=== PATIENT | male | born 1975 | race Hispanic/Latino ===

== ENCOUNTER 2024-01-07 20:09 | Inpatient (IN) | payer BC, OTHER ==
[~2024-01-07] VITALS: Ht 182.9 cm; Wt 113.8 kg
[2024-01-07] MEDS ORDERED: METF500S9 PO (20:30)
[2024-01-07] MEDS ORDERED: SEMA1PEN3 SQ (20:30)
[2024-01-07] MEDS ORDERED: ATOR40TA71 PO (20:30)
[2024-01-07] MEDS ORDERED: VANCOMYCIN PROTOCOL PER PHARMACY IV SCH (20:30)
[2024-01-07] MEDS ORDERED: LOSA25TA41 PO (20:30)
[2024-01-07] MEDS ORDERED: VANCOMYCIN KIT 1 GM/250 ML IV.KIT IV ONE (20:30)
[2024-01-07] MEDS ORDERED: INSLAN SQ (20:30)
[2024-01-07] MEDS: ceFEPime HCL 1 GM VIAL IVPB SCH (20:49)
[2024-01-07] MEDS: VANCOMYCIN 2GM/500 ML BAG 500 ML IV ONE (21:39)
[2024-01-07 22:07] LABS: BASOPHILS # (AUTO) 0.02 K/uL (0.00-0.20); BASOPHILS % (AUTO) 0.2 % (0.0-5.0); EOSINOPHILS # (AUTO) 0.15 K/uL (0.00-0.70); EOSINOPHILS % (AUTO) 1.6 % (0.0-8.0); HEMATOCRIT 34.1 % (42-54); IMMATURE GRANULOCYTE ABSOLUTE 0.04 K/uL (0-1); LYMPHOCYTES % (AUTO) 21.2 % (21.0-51.0); MEAN CORPUSCULAR HEMOGLOBIN 27.3 pg (27.0-33.0); MEAN CORPUSCULAR HGB CONC 33.1 g/dL (32.0-36.0); MEAN CORPUSCULAR VOLUME 82.4 fL (79-99); MONOCYTES # (AUTO) 0.6 K/uL (0.1-1.0); MONOCYTES % (AUTO) 6.2 % (3.0-13.0); NEUTROPHILS # (AUTO) 6.5 K/uL (1.8-7.7); NEUTROPHILS % (AUTO) 70.4 % (40.0-77.0); PLATELET COUNT (AUTO) 337 K/uL (130-400); RED BLOOD CELL COUNT(AUTO) 4.14 MIL/uL (4.50-6.20); RED CELL DISTRIBUTION WIDTH 13.2 % (11.0-15.5); WHITE BLOOD COUNT (AUTO) 9.2 K/uL (4.8-10.8)
[2024-01-07 22:15] LABS: CREATININE 1.1 mg/dL (0.5-1.3); POTASSIUM 3.8 mmol/L (3.5-5.1)
[2024-01-07 22:20] LABS: ALBUMIN 2.4 g/dL (3.5-5.0); BILIRUBIN,TOTAL 0.2 mg/dL (0.2-1.0); TOTAL PROTEIN, SERUM 7.7 g/dL (6.0-8.3)
[2024-01-07 22:30] VITALS: BP 169/86; PULSE 91; RESP 19; TEMP 98.5; O2SAT 93
[2024-01-07] MEDS ORDERED: ERGO500093 PO (22:53)
[2024-01-07] MEDS ORDERED: GLUCAGON 1MG KIT 1 MG ML IM PRN (23:00)
[2024-01-07] MEDS ORDERED: DEXTROSE 50%-WATER 50 ML DISP.SYRIN IV PRN (23:00)
[2024-01-07] MEDS ORDERED: POTASSIUM CHLORIDE 20MEQ/100ML 100 ML IV PRN (23:00)
[2024-01-07] MEDS: HYDROcodone/APAP 5/325 1 TAB TABLET PO PRN (23:30)
[2024-01-07] MEDS: KCL 20 MEQ ERTAB PO ONE (23:30)
[2024-01-07] MEDS ORDERED: POTASSIUM CHLORIDE 10% ELIXIR 20 MEQ/15 ML UDCUP PO PRN (23:30)
[2024-01-07] MEDS: 0.9%NACL 1000ML 1,000 ML IV SCH (23:30)
[2024-01-08] VITALS (23 sets, daily range): BP systolic 110–167; BP diastolic 59–96; PULSE 63–78; RESP 13–20; TEMP 97.8–99; O2SAT 93–96
[2024-01-08 04:10] LABS: BASOPHILS # (AUTO) 0.02 K/uL (0.00-0.20); BASOPHILS % (AUTO) 0.2 % (0.0-5.0); EOSINOPHILS # (AUTO) 0.24 K/uL (0.00-0.70); EOSINOPHILS % (AUTO) 2.9 % (0.0-8.0); HEMATOCRIT 32.9 % (42-54); IMMATURE GRANULOCYTE ABSOLUTE 0.03 K/uL (0-1); LYMPHOCYTES % (AUTO) 24.1 % (21.0-51.0); MEAN CORPUSCULAR HEMOGLOBIN 27.2 pg (27.0-33.0); MEAN CORPUSCULAR HGB CONC 32.5 g/dL (32.0-36.0); MEAN CORPUSCULAR VOLUME 83.5 fL (79-99); MONOCYTES # (AUTO) 0.7 K/uL (0.1-1.0); MONOCYTES % (AUTO) 8.4 % (3.0-13.0); NEUTROPHILS # (AUTO) 5.3 K/uL (1.8-7.7); PLATELET COUNT (AUTO) 312 K/uL (130-400); RED BLOOD CELL COUNT(AUTO) 3.94 MIL/uL (4.50-6.20); RED CELL DISTRIBUTION WIDTH 13.2 % (11.0-15.5); WHITE BLOOD COUNT (AUTO) 8.3 K/uL (4.8-10.8)
[2024-01-08 04:36] LABS: % IRON SATURATION 10.8 % (30-44)
[2024-01-08 04:40] LABS: ALBUMIN 2.1 g/dL (3.5-5.0); BILIRUBIN,TOTAL 0.1 mg/dL (0.2-1.0); MAGNESIUM 1.6 mg/dL (1.80-2.40); POTASSIUM 3.6 mmol/L (3.5-5.1)
[2024-01-08] MEDS: KCL 20 MEQ ERTAB PO PRN (05:58)
[2024-01-08] MEDS: MAGNESIUM 2GM PREMIX 50ML 50 ML IV PRN (05:59)
[2024-01-08] MEDS: INSULIN humuLIN R 100 UNIT/ML 3ML SQ SCH (06:05)
[2024-01-08] MEDS: VANCOMYCIN 1.25 GM/250 ML BAG 250 ML IV SCH (11:10)
[2024-01-08] MEDS ORDERED: LIDOCAINE PF 100MG/5ML (2%) SYRINGE 5ML ONE (15:42)
[2024-01-08] MEDS ORDERED: dexaMETHasone SOD PHOSPHATE 10MG/ML 1ML VIAL ONE (15:42)
[2024-01-08] MEDS ORDERED: MIDAZOLAM HCL 1 MG/ML 2ML VIAL ONE (15:43)
[2024-01-08] MEDS ORDERED: proPOFol 10 MG/ML 20ML VIAL IV ONE ×2 (15:43→16:19)
[2024-01-08] MEDS ORDERED: FENTanyl CITRate PF 50 MCG/1 ML 2ML VIAL ONE (15:43)
[2024-01-08] MEDS ORDERED: ONDANSETRON 4MG INJ ONE (15:43)
[2024-01-08] MEDS ORDERED: LIDOCAINE HCL-MPF 2% 10ML AMP IJ ONE (15:59)
[2024-01-08] MEDS ORDERED: BUPIvacaine/PF 0.5% 10ML VIAL ONE (15:59)
[2024-01-08] MEDS: LIDOCAINE HCL-MPF 2% 10ML AMP IJ ONE (16:20)
[2024-01-08] MEDS ORDERED: PHENYLEPHRINE HCL 10 MG/ML 1ML VIAL IV ONE (16:25)
[2024-01-08] MEDS ORDERED: morPHINE 2 MG SYG IVP PRN ×2 (18:30)
[2024-01-08] MEDS: INSULIN GLARgine 100 UNITS/ML 10 ML VIAL SQ SCH (20:17)
[2024-01-08] MEDS: LoSARTan 25 MG TABLET PO SCH (20:22)
[2024-01-08] MEDS ORDERED: PHARMACY COMMUNICATION MISC SCH (20:30)
[2024-01-09] VITALS (9 sets, daily range): BP systolic 119–141; BP diastolic 66–78; PULSE 66–78; RESP 16–20; TEMP 97.6–98.3; O2SAT 96–97
[2024-01-09 05:19] LABS: BASOPHILS # (AUTO) 0.01 K/uL (0.00-0.20); BASOPHILS % (AUTO) 0.1 % (0.0-5.0); EOSINOPHILS # (AUTO) 0.01 K/uL (0.00-0.70); EOSINOPHILS % (AUTO) 0.1 % (0.0-8.0); HEMATOCRIT 34.6 % (42-54); IMMATURE GRANULOCYTE ABSOLUTE 0.03 K/uL (0-1); LYMPHOCYTES # (AUTO) 1.4 K/uL (1.0-4.8); LYMPHOCYTES % (AUTO) 14.9 % (21.0-51.0); MEAN CORPUSCULAR HEMOGLOBIN 26.5 pg (27.0-33.0); MEAN CORPUSCULAR HGB CONC 32.4 g/dL (32.0-36.0); MONOCYTES # (AUTO) 0.5 K/uL (0.1-1.0); MONOCYTES % (AUTO) 5.1 % (3.0-13.0); NEUTROPHILS # (AUTO) 7.7 K/uL (1.8-7.7); NEUTROPHILS % (AUTO) 79.5 % (40.0-77.0); PLATELET COUNT (AUTO) 344 K/uL (130-400); RED BLOOD CELL COUNT(AUTO) 4.22 MIL/uL (4.50-6.20); RED CELL DISTRIBUTION WIDTH 13.1 % (11.0-15.5); WHITE BLOOD COUNT (AUTO) 9.6 K/uL (4.8-10.8)
[2024-01-09 05:38] LABS: ALBUMIN 2.3 g/dL (3.5-5.0); BILIRUBIN,TOTAL 0.3 mg/dL (0.2-1.0); MAGNESIUM 1.8 mg/dL (1.80-2.40); POTASSIUM 4.2 mmol/L (3.5-5.1); TOTAL PROTEIN, SERUM 7.5 g/dL (6.0-8.3)
[2024-01-10 03:45] VITALS: BP 136/61; PULSE 77; RESP 17; TEMP 98.2
[2024-01-10 06:01] LABS: BASOPHILS # (AUTO) 0.01 K/uL (0.00-0.20); BASOPHILS % (AUTO) 0.1 % (0.0-5.0); EOSINOPHILS # (AUTO) 0.18 K/uL (0.00-0.70); EOSINOPHILS % (AUTO) 2.5 % (0.0-8.0); HEMATOCRIT 32.3 % (42-54); IMMATURE GRANULOCYTE ABSOLUTE 0.04 K/uL (0-1); LYMPHOCYTES % (AUTO) 28.1 % (21.0-51.0); MEAN CORPUSCULAR HEMOGLOBIN 26.6 pg (27.0-33.0); MEAN CORPUSCULAR HGB CONC 32.5 g/dL (32.0-36.0); MONOCYTES # (AUTO) 0.6 K/uL (0.1-1.0); MONOCYTES % (AUTO) 8.3 % (3.0-13.0); NEUTROPHILS # (AUTO) 4.4 K/uL (1.8-7.7); NEUTROPHILS % (AUTO) 60.4 % (40.0-77.0); PLATELET COUNT (AUTO) 344 K/uL (130-400); RED BLOOD CELL COUNT(AUTO) 3.94 MIL/uL (4.50-6.20); RED CELL DISTRIBUTION WIDTH 13.2 % (11.0-15.5); WHITE BLOOD COUNT (AUTO) 7.3 K/uL (4.8-10.8)
[2024-01-10 06:20] LABS: ALBUMIN 2.1 g/dL (3.5-5.0); BILIRUBIN,TOTAL 0.2 mg/dL (0.2-1.0); MAGNESIUM 1.7 mg/dL (1.80-2.40); POTASSIUM 3.5 mmol/L (3.5-5.1); TOTAL PROTEIN, SERUM 6.9 g/dL (6.0-8.3)
[2024-01-10 08:00] VITALS: BP 156/78; PULSE 75; RESP 18; TEMP 97.6; O2SAT 97
[2024-01-10 11:29] VITALS: BP 130/65; PULSE 71; RESP 18; TEMP 99.2
[2024-01-10 16:00] VITALS: BP 152/79; PULSE 75; RESP 18; TEMP 98.3
[2024-01-10] MEDS: ERYTHROMYCIN BASE 0.5% OPHTH OINT 1 GM TUBE OS ONE (16:33)
[2024-01-10 20:00] VITALS: O2SAT 94
[2024-01-10 21:18] VITALS: BP 155/74; PULSE 76; RESP 18; TEMP 98.5
[2024-01-11] VITALS: BP 184/84; PULSE 86; RESP 20; TEMP 98.4
[2024-01-11] MEDS: hydrALAZine 20MG/ML VIAL IV ONE (01:18)
[2024-01-11 04:29] VITALS: BP 138/63; PULSE 76; RESP 19; TEMP 98.3
[2024-01-11 04:31] VITALS: BP 133/66; PULSE 72; RESP 18; TEMP 98.3
[2024-01-11 05:08] LABS: BASOPHILS # (AUTO) 0.01 K/uL (0.00-0.20); BASOPHILS % (AUTO) 0.2 % (0.0-5.0); EOSINOPHILS # (AUTO) 0.18 K/uL (0.00-0.70); EOSINOPHILS % (AUTO) 2.8 % (0.0-8.0); HEMATOCRIT 35.8 % (42-54); IMMATURE GRANULOCYTE ABSOLUTE 0.03 K/uL (0-1); LYMPHOCYTES # (AUTO) 1.8 K/uL (1.0-4.8); LYMPHOCYTES % (AUTO) 28.4 % (21.0-51.0); MEAN CORPUSCULAR HEMOGLOBIN 27.1 pg (27.0-33.0); MEAN CORPUSCULAR HGB CONC 32.1 g/dL (32.0-36.0); MEAN CORPUSCULAR VOLUME 84.4 fL (79-99); MONOCYTES # (AUTO) 0.6 K/uL (0.1-1.0); MONOCYTES % (AUTO) 9.5 % (3.0-13.0); NEUTROPHILS # (AUTO) 3.8 K/uL (1.8-7.7); NEUTROPHILS % (AUTO) 58.6 % (40.0-77.0); PLATELET COUNT (AUTO) 326 K/uL (130-400); RED BLOOD CELL COUNT(AUTO) 4.24 MIL/uL (4.50-6.20); RED CELL DISTRIBUTION WIDTH 13.2 % (11.0-15.5); WHITE BLOOD COUNT (AUTO) 6.4 K/uL (4.8-10.8)
[2024-01-11 05:38] LABS: ALBUMIN 2.3 g/dL (3.5-5.0); BILIRUBIN,TOTAL 0.1 mg/dL (0.2-1.0); CREATININE 0.9 mg/dL (0.5-1.3); MAGNESIUM 1.8 mg/dL (1.80-2.40); POTASSIUM 3.5 mmol/L (3.5-5.1); TOTAL PROTEIN, SERUM 7.2 g/dL (6.0-8.3)
[2024-01-11 08:00] VITALS: BP 158/89; PULSE 72; RESP 18; TEMP 98.2
[2024-01-11 08:15] VITALS: O2SAT 96
[2024-01-11 12:00] VITALS: BP 148/83; PULSE 68; RESP 18; TEMP 98
== END 2024-01-11 15:50 | disposition home or self-care (01) | DRG 854 ==
LOC: EDH 20:09 → EDHIP 20:10 → 4BH 22:34
PROVIDERS: ADMIT Hospitalist; ATTEND Hospitalist
PROC: 0Y6Q0Z1 Detachment at Left 1st Toe, High, Open Approach (ICD-10-PCS; principal; 2024-01-08 16:20)
DX: A41.9 Sepsis, unspecified organism (principal); E11.52 Type 2 diabetes mellitus with diabetic peripheral angiopathy with gangrene; E46 Unspecified protein-calorie malnutrition; M86.8X7 Other osteomyelitis, ankle and foot; L97.518 Non-pressure chronic ulcer of other part of right foot with other specified severity; L97.528 Non-pressure chronic ulcer of other part of left foot with other specified severity; Z89.422 Acquired absence of other left toe(s); Z89.421 Acquired absence of other right toe(s); E11.69 Type 2 diabetes mellitus with other specified complication; B96.4 Proteus (mirabilis) (morganii) as the cause of diseases classified elsewhere; D64.9 Anemia, unspecified; E11.622 Type 2 diabetes mellitus with other skin ulcer; E66.9 Obesity, unspecified; I10 Essential (primary) hypertension; Z83.3 Family history of diabetes mellitus; B95.61 Methicillin susceptible Staphylococcus aureus infection as the cause of diseases classified elsewhere; B95.4 Other streptococcus as the cause of diseases classified elsewhere; E11.621 Type 2 diabetes mellitus with foot ulcer; Z68.34 Body mass index [BMI] 34.0-34.9, adult
CPT/HCPCS: 36415; 73630; 73718; 80053; 80061; 80202; 82948; 83036; 83540; 83550; 83735; 84145; 85025; 86140; 87070; 87076; 87086; 87186; 87205; 93925; G0378; J0360; J0692; J1100; J1815; J2001; J2250; J2371; J2405; J2704; J3010; J3475; J3490; J7030; 3370; A4222; A4223; A4649; A6446; C1729; J0665; J3370

== ENCOUNTER 2024-02-04 19:02 | Inpatient (IN) | payer OTHER ==
[~2024-02-04] VITALS: Ht 182.9 cm; Wt 111.7 kg
[~2024-02-04 19:02] MED LIST: ERGO500093 PO; INSLAN SQ; LOSA25TA41 PO; METF500S9 PO; SEMA1PEN3 SQ
[2024-02-04 19:27] LABS: BASOPHILS # (AUTO) 0.03 K/uL (0.00-0.20); BASOPHILS % (AUTO) 0.3 % (0.0-5.0); EOSINOPHILS # (AUTO) 0.21 K/uL (0.00-0.70); EOSINOPHILS % (AUTO) 2.1 % (0.0-8.0); HEMATOCRIT 34.4 % (42-54); IMMATURE GRANULOCYTE ABSOLUTE 0.04 K/uL (0-1); LYMPHOCYTES # (AUTO) 2.8 K/uL (1.0-4.8); LYMPHOCYTES % (AUTO) 28.1 % (21.0-51.0); MEAN CORPUSCULAR HEMOGLOBIN 26.6 pg (27.0-33.0); MEAN CORPUSCULAR HGB CONC 33.1 g/dL (32.0-36.0); MEAN CORPUSCULAR VOLUME 80.2 fL (79-99); MONOCYTES # (AUTO) 0.7 K/uL (0.1-1.0); MONOCYTES % (AUTO) 7.3 % (3.0-13.0); NEUTROPHILS # (AUTO) 6.2 K/uL (1.8-7.7); NEUTROPHILS % (AUTO) 61.8 % (40.0-77.0); PLATELET COUNT (AUTO) 379 K/uL (130-400); RED BLOOD CELL COUNT(AUTO) 4.29 MIL/uL (4.50-6.20); RED CELL DISTRIBUTION WIDTH 13.6 % (11.0-15.5); WHITE BLOOD COUNT (AUTO) 10.1 K/uL (4.8-10.8)
[2024-02-04 19:34] LABS: POTASSIUM 3.9 mmol/L (3.5-5.1)
[2024-02-04 20:08] LABS: INR 0.96 (0.85-1.15); PROTHROMBIN TIME 10.4 SEC (9.6-11.6)
[2024-02-04 20:10] LABS: PARTIAL THROMBOPLASTIN TIME 31.7 SEC (26.3-35.5)
[2024-02-04] MEDS: ENOXAPARIN SODIUM 120 MG/0.8ML SQ ONE (21:12)
[2024-02-04] MEDS ORDERED: ondanSETRON 4MG INJ IVP PRN (21:30)
[2024-02-04] MEDS ORDERED: PoTASSium chloRIDE 20MEQ/100ML 100 ML IV PRN (21:30)
[2024-02-04] MEDS ORDERED: TEMAZepam 15 MG CAPSULE PO PRN (21:30)
[2024-02-04] MEDS ORDERED: PoTASSium chl 10% ELIXIR 20MEQ 20 MEQ/15 ML UDCUP PO PRN (21:30)
[2024-02-04] MEDS ORDERED: doCUSate SODIUM 100 MG CAP PO PRN (21:30)
[2024-02-04] MEDS ORDERED: DEXTROSE 50%-WATER 50 ML DISP.SYRIN IV PRN (21:30)
[2024-02-04] MEDS ORDERED: hydrALAZine 20MG/ML VIAL IV PRN (21:30)
[2024-02-04] MEDS ORDERED: LACTULOSE 20 GM/30 ML UDCUP PO PRN (21:30)
[2024-02-04] MEDS ORDERED: GLUCAGON 1MG KIT 1 MG ML IM PRN (21:30)
[2024-02-04] MEDS ORDERED: acetaMINOPHEN 650 MG SUPPOSITORY RC PRN (21:30)
[2024-02-04] MEDS: HYDROcodone/APAP 5/325 1 TAB TABLET PO PRN (21:31)
[2024-02-04 21:54] LABS: ADD UA MICROSCOPIC YES; APPEARANCE,URINE CLEAR (CLEAR); BILIRUBIN,URINE NEGATIVE (NEGATIVE); COLOR,URINE LIGHT-YELLOW (YELLOW); GLUCOSE, URINE (UA) 200 mg/dL (NEGATIVE); KETONES,URINE NEGATIVE (NEGATIVE); LEUKOCYTE ESTERASE ,URINE NEGATIVE Leu/uL (NEGATIVE); NITRATE,URINE NEGATIVE (NEGATIVE); OCCULT BLOOD,URINE SMALL (NEGATIVE); PROTEIN,URINE 300 mg/dL (NEGATIVE); UROBILINOGEN,URINE 0.2 mg/dL (0.2-1.0)
[2024-02-04 21:55] LABS: MUCUS,URINE RARE LPF (None Seen); RBC,URINE 0-1 /HPF (0-1); SQUAMOUS EPITHELIAL CELL,UR RARE /HPF (0-2); WBC,URINE 0-1 /HPF (0-1)
[2024-02-04 22:55] VITALS: BP 149/80; PULSE 99; RESP 18; TEMP 98.2
[2024-02-04] MEDS ORDERED: LOSA50TA64 PO (23:17)
[2024-02-04] MEDS ORDERED: SEMA2PEN SQ (23:20)
[2024-02-04] MEDS ORDERED: GLIM1TAB56 PO (23:20)
[2024-02-04] MEDS ORDERED: CEFU500T67 PO (23:23)
[2024-02-04 23:44] VITALS: O2SAT 100
[2024-02-05] VITALS (7 sets, daily range): BP systolic 133–176; BP diastolic 70–87; PULSE 80–99; RESP 18–20; TEMP 97.4–98.8; O2SAT 97
[2024-02-05 04:52] LABS: BASOPHILS # (AUTO) 0.03 K/uL (0.00-0.20); BASOPHILS % (AUTO) 0.4 % (0.0-5.0); EOSINOPHILS # (AUTO) 0.21 K/uL (0.00-0.70); EOSINOPHILS % (AUTO) 2.8 % (0.0-8.0); HEMATOCRIT 32.2 % (42-54); IMMATURE GRANULOCYTE ABSOLUTE 0.02 K/uL (0-1); LYMPHOCYTES # (AUTO) 2.5 K/uL (1.0-4.8); LYMPHOCYTES % (AUTO) 32.8 % (21.0-51.0); MEAN CORPUSCULAR HEMOGLOBIN 26.6 pg (27.0-33.0); MEAN CORPUSCULAR HGB CONC 32.6 g/dL (32.0-36.0); MEAN CORPUSCULAR VOLUME 81.5 fL (79-99); MONOCYTES # (AUTO) 0.6 K/uL (0.1-1.0); MONOCYTES % (AUTO) 8.4 % (3.0-13.0); NEUTROPHILS # (AUTO) 4.2 K/uL (1.8-7.7); NEUTROPHILS % (AUTO) 55.3 % (40.0-77.0); PLATELET COUNT (AUTO) 322 K/uL (130-400); RED BLOOD CELL COUNT(AUTO) 3.95 MIL/uL (4.50-6.20); RED CELL DISTRIBUTION WIDTH 13.5 % (11.0-15.5); WHITE BLOOD COUNT (AUTO) 7.6 K/uL (4.8-10.8)
[2024-02-05 05:05] LABS: CREATININE 1.1 mg/dL (0.5-1.3); MAGNESIUM 1.5 mg/dL (1.80-2.40); PHOSPHORUS 4.3 mg/dL (2.5-4.9); POTASSIUM 3.5 mmol/L (3.5-5.1)
[2024-02-05] MEDS: MAGNESIUM 2GM PREMIX 50ML 50 ML IV PRN (06:15)
[2024-02-05] MEDS: PoTASSium chloRIDE 20MEQ ER 20 MEQ ERTAB PO PRN (06:16)
[2024-02-05] MEDS: INSULIN humuLIN R 100 UNIT/ML 3ML SQ SCH (06:19)
[2024-02-05] MEDS ORDERED: INSULIN humuLIN R 100 UNIT/ML 3ML SQ SCH (07:30)
[2024-02-05] MEDS: FAMOTIDINE 20MG TAB PO SCH (08:44)
[2024-02-05] MEDS: LoSARTan 50 MG TABLET PO SCH (08:44)
[2024-02-05] MEDS: ENOXAPARIN SODIUM 60 MG/0.6 ML SQ SCH (08:47)
[2024-02-05] MEDS: morPHINE 2 MG SYG IM ONE (22:02)
[2024-02-06] VITALS (22 sets, daily range): BP systolic 129–173; BP diastolic 67–110; PULSE 75–107; RESP 14–19; TEMP 97.8–101; O2SAT 96–97
[2024-02-06] MEDS ORDERED: BUPIvacaine/PF 0.5% 30ML VIAL ONE (09:53)
[2024-02-06] MEDS ORDERED: LIDOCAINE HCL 400MG/20ML VIAL ONE (09:53)
[2024-02-06] MEDS: ceFAZolin SODIUM 2 GM VIAL IVPB ONE ×2 (10:11→10:17)
[2024-02-06] MEDS ORDERED: MIDAZOLAM HCL 1 MG/ML 2ML VIAL ONE (10:18)
[2024-02-06] MEDS ORDERED: FENTanyl CITRate PF 50 MCG/1 ML 2ML VIAL ONE (10:18)
[2024-02-06] MEDS ORDERED: ceFAZolin SODIUM 1 GM VIAL ONE (10:26)
[2024-02-06] MEDS: morPHINE 2 MG SYG IVP PRN (12:46)
[2024-02-06] MEDS ORDERED: ZOSYN 3.375GM +NS 50ML IV SCH (19:00)
[2024-02-06] MEDS: ZOSYN 3.375GM +NS 50ML IV SCH (20:40)
[2024-02-06] MEDS: acetaMINOPHEN 325 MG TAB PO PRN (20:40)
[2024-02-07] VITALS (8 sets, daily range): BP systolic 118–155; BP diastolic 70–83; PULSE 86–104; RESP 14–19; TEMP 98.2–100; O2SAT 97
[2024-02-07] MEDS: HYDROcodone/APAP 5/325 1 TAB TABLET PO PRN (15:58)
[2024-02-07] MEDS ORDERED: HYDROcodone/APAP 5/325 1 TAB TABLET PO PRN (16:00)
[2024-02-07] MEDS: FAMOTIDINE 20MG TAB PO SCH (21:41)
[2024-02-08 03:51] VITALS: BP 144/85; PULSE 85; RESP 17; TEMP 98.8
[2024-02-08 05:16] LABS: BASOPHILS # (AUTO) 0.03 K/uL (0.00-0.20); BASOPHILS % (AUTO) 0.4 % (0.0-5.0); EOSINOPHILS % (AUTO) 2.4 % (0.0-8.0); HEMATOCRIT 31.9 % (42-54); IMMATURE GRANULOCYTE ABSOLUTE 0.03 K/uL (0-1); LYMPHOCYTES # (AUTO) 2.4 K/uL (1.0-4.8); LYMPHOCYTES % (AUTO) 28.8 % (21.0-51.0); MEAN CORPUSCULAR HEMOGLOBIN 25.6 pg (27.0-33.0); MEAN CORPUSCULAR HGB CONC 31.3 g/dL (32.0-36.0); MEAN CORPUSCULAR VOLUME 81.8 fL (79-99); MONOCYTES # (AUTO) 0.8 K/uL (0.1-1.0); MONOCYTES % (AUTO) 9.2 % (3.0-13.0); NEUTROPHILS # (AUTO) 4.8 K/uL (1.8-7.7); NEUTROPHILS % (AUTO) 58.8 % (40.0-77.0); PLATELET COUNT (AUTO) 350 K/uL (130-400); RED CELL DISTRIBUTION WIDTH 13.4 % (11.0-15.5); WHITE BLOOD COUNT (AUTO) 8.2 K/uL (4.8-10.8)
[2024-02-08 05:36] LABS: MAGNESIUM 1.7 mg/dL (1.80-2.40); PHOSPHORUS 3.5 mg/dL (2.5-4.9); POTASSIUM 3.7 mmol/L (3.5-5.1)
[2024-02-08 08:00] VITALS: BP 142/80; PULSE 85; RESP 20; TEMP 98.3; O2SAT 97
[2024-02-08 11:02] VITALS: BP 146/82; PULSE 89; RESP 19; TEMP 98
[2024-02-08 15:59] VITALS: BP 143/86; PULSE 86; RESP 19; TEMP 98.3
[2024-02-08] MEDS ORDERED: APIX5TAB PO (16:51)
== END 2024-02-08 19:30 | disposition home or self-care (01) | DRG 504 ==
LOC: EDH 19:02 → INTOOBSV 20:05 → EDHIP 20:05 → OBSVTOIN 20:05 → 4BH 22:46
PROVIDERS: ADMIT Internal Medicine; ATTEND Internal Medicine
PROC: 0QBR0ZZ Excision of Left Toe Phalanx, Open Approach (ICD-10-PCS; 2024-02-06)
PROC: 0QBP0ZZ Excision of Left Metatarsal, Open Approach (ICD-10-PCS; principal; 2024-02-06 09:30)
DX: T87.44 Infection of amputation stump, left lower extremity (principal); E10.52 Type 1 diabetes mellitus with diabetic peripheral angiopathy with gangrene; T81.30XA Disruption of wound, unspecified, initial encounter; M86.8X7 Other osteomyelitis, ankle and foot; E10.621 Type 1 diabetes mellitus with foot ulcer; I82.462 Acute embolism and thrombosis of left calf muscular vein; I10 Essential (primary) hypertension; E10.69 Type 1 diabetes mellitus with other specified complication; E66.01 Morbid (severe) obesity due to excess calories; D64.9 Anemia, unspecified; Y83.5 Amputation of limb(s) as the cause of abnormal reaction of the patient, or of later complication, without mention of misadventure at the time of the procedure; L03.032 Cellulitis of left toe; E78.00 Pure hypercholesterolemia, unspecified; L97.509 Non-pressure chronic ulcer of other part of unspecified foot with unspecified severity; Z79.01 Long term (current) use of anticoagulants; Z89.422 Acquired absence of other left toe(s); Z79.4 Long term (current) use of insulin; Z83.3 Family history of diabetes mellitus; Z86.718 Personal history of other venous thrombosis and embolism; Z89.412 Acquired absence of left great toe; Z90.49 Acquired absence of other specified parts of digestive tract; B96.4 Proteus (mirabilis) (morganii) as the cause of diseases classified elsewhere; Z68.33 Body mass index [BMI] 33.0-33.9, adult
CPT/HCPCS: 36415; 73630; 73718; 80048; 81001; 82948; 83735; 84100; 85025; 85610; 85730; 87070; 87076; 87086; 87186; 87205; 88305; 88311; 93971; 96372; G0378; J0690; J1650; J1815; J2250; J2270; J2543; J3010; J3475; J3490; J7030; A4222; A4223; A4649; A4930; A6446; C1729; J0665